=== PATIENT | female | born 1980 | race Caucasian/White ===

== ENCOUNTER 2024-08-14 22:37 | Emergency (ER) | payer MEDICAID ==
[~2024-08-14] VITALS: Ht 160 cm; Wt 63.6 kg
[2024-08-15] LABS: HCG SERUM QL NEGATIVE
[2024-08-15 00:14] VITALS: BP 152/89; PULSE 86; RESP 16; TEMP 98.6; O2SAT 99
== END 2024-08-15 00:16 ==
LOC: ER 22:37
DX: Z02.89 Encounter for other administrative examinations (principal)
CPT/HCPCS: 36415; 84703; 99283